=== PATIENT | female | born 1990 | race Caucasian/White ===

== ENCOUNTER 2017-08-04 18:18 | Inpatient (IN) | payer OTHER ==
[~2017-08-04] VITALS: Ht 161.3 cm; Wt 68.6 kg
[2017-08-04] VITALS (13 sets, daily range): BP systolic 124–144; BP diastolic 58–81
[~2017-08-04 18:18] MED LIST: MEDROXYPRO150 MG/1 M IM; NAPROSYN500 MG PO; NOHOMEMEDS; ZOFRAN ODT8 MG PO
[2017-08-04] MEDS ORDERED: PRENATAL TABLE1 EAC3 PO (18:57)
[2017-08-04 21:45] LABS: BASOPHIL (%) 0.4 % (0-1); BASOPHIL COUNT 0.1 K/uL (0-0.1); EOSINOPHIL (%) 0.8 % (0-5); EOSINOPHIL COUNT 0.1 K/uL (0-0.3); HEMATOCRIT 32.1 % (36.0-46.0); HEMOGLOBIN 10.6 G/DL (11.9-15.5); IMMATURE GRANULOCYTE (%) 0.5 % (0.0-0.7); LYMPHOCYTE (%) 22.7 % (15-42); LYMPHOCYTE COUNT 2.6 K/uL (1.0-2.8); MCH 30.6 PG (29.0-34.0); MCV 92.8 FL (83-99); NEUTROPHIL (%) 66.6 % (45-76); NEUTROPHIL COUNT 7.6 K/uL (1.8-6.4); PLATELET COUNT 237 K/uL (156-360); RBC DIS.WIDTH-CV 12.7 % (11.8-14.6); RBC DIS.WIDTH-SD 42.8 % (39-53); RED BLOOD COUNT 3.46 M/uL (3.80-5.20); WHITE BLOOD COUNT 11.4 K/uL (4.1-10.2)
[2017-08-05] VITALS (15 sets, daily range): BP systolic 88–130; BP diastolic 51–82
[2017-08-06 07:20] LABS: BASOPHIL (%) 0.4 % (0-1); BASOPHIL COUNT 0.1 K/uL (0-0.1); EOSINOPHIL COUNT 0.1 K/uL (0-0.3); HEMATOCRIT 28.2 % (36.0-46.0); HEMOGLOBIN 9.1 G/DL (11.9-15.5); IMMATURE GRANULOCYTE (%) 0.5 % (0.0-0.7); LYMPHOCYTE (%) 27.5 % (15-42); LYMPHOCYTE COUNT 3.8 K/uL (1.0-2.8); MCH 30.2 PG (29.0-34.0); MCHC 32.3 G/DL (30.0-36.0); MCV 93.7 FL (83-99); MONOCYTE (%) 6.3 % (3-12); MONOCYTE COUNT 0.9 K/uL (0-0.8); NEUTROPHIL (%) 64.3 % (45-76); NEUTROPHIL COUNT 8.8 K/uL (1.8-6.4); PLATELET COUNT 202 K/uL (156-360); RBC DIS.WIDTH-CV 12.5 % (11.8-14.6); RBC DIS.WIDTH-SD 42.5 % (39-53); RED BLOOD COUNT 3.01 M/uL (3.80-5.20); WHITE BLOOD COUNT 13.7 K/uL (4.1-10.2)
[2017-08-06] MEDS ORDERED: FERRETTS325 MG PO (12:30)
[2017-08-06] MEDS ORDERED: IBUPROFEN800 MG PO (12:30)
== END 2017-08-06 14:33 | disposition home or self-care (01) | DRG 775 ==
LOC: LDRP-OP → 2WEST 18:19 → LDRP-OP 09-05 13:22
PROVIDERS: Advanced Practice Midwife
PROC: 3E0R3BZ Introduction of Anesthetic Agent into Spinal Canal, Percutaneous Approach (ICD-10-PCS; principal; 2017-08-05)
PROC: 10907ZC Drainage of Amniotic Fluid, Therapeutic from Products of Conception, Via Natural or Artificial Opening (ICD-10-PCS; principal; 2017-08-05)
PROC: 00HU33Z Insertion of Infusion Device into Spinal Canal, Percutaneous Approach (ICD-10-PCS; principal; 2017-08-05)
PROC: 0HQ9XZZ Repair Perineum Skin, External Approach (ICD-10-PCS; principal; 2017-08-05)
PROC: 10E0XZZ Delivery of Products of Conception, External Approach (ICD-10-PCS; principal; 2017-08-05)
DX: O66.0 Obstructed labor due to shoulder dystocia (principal); O99.02 Anemia complicating childbirth; D62 Acute posthemorrhagic anemia; Z3A.39 39 weeks gestation of pregnancy; Z37.0 Single live birth; Z87.891 Personal history of nicotine dependence; O77.0 Labor and delivery complicated by meconium in amniotic fluid
CPT/HCPCS: 85025; 90686; C1755; G0378; J2405; J3010; J7120

== ENCOUNTER 2017-10-30 12:17 | Emergency (ER) | payer OTHER ==
[~2017-10-30] VITALS: Ht 160 cm; Wt 58.4 kg
[~2017-10-30 12:17] MED LIST changes: +FERRETTS325 MG PO; +IBUPROFEN800 MG PO; +PRENATAL TABLE1 EAC3 PO
[2017-10-30 12:32] VITALS: BP 128/65
[2017-10-30 12:47] LABS: HEMATOCRIT 41.6 % (36.0-46.0); HEMOGLOBIN 13.9 G/DL (11.9-15.5); MCHC 33.4 G/DL (30.0-36.0); MCV 89.8 FL (83-99); PLATELET COUNT 333 K/uL (156-360); RBC DIS.WIDTH-CV 13.1 % (11.8-14.6); RBC DIS.WIDTH-SD 42.9 % (39-53); RED BLOOD COUNT 4.63 M/uL (3.80-5.20); WHITE BLOOD COUNT 7.7 K/uL (4.1-10.2)
[2017-10-30 13:03] LABS: ALBUMIN 4.3 g/dL (3.2-4.8); CHLORIDE 107 mEq/L (99-109); POTASSIUM 4.2 mEq/L (3.7-5.4); SODIUM 142 mEq/L (136-147)
[2017-10-30 13:05] LABS: GLUCOSE 101 mg/dL (70-99)
[2017-10-30 13:06] LABS: TOTAL PROTEIN 7.5 g/dL (6.4-8.3)
[2017-10-30 13:07] LABS: TOTAL BILIRUBIN 0.8 mg/dL (0.0-1.0)
[2017-10-30 13:09] LABS: ALKALINE PHOSPHATASE 69 IU/L (3-129); CREATININE 0.9 mg/dL (0.6-1.3); GFR ESTIMATE (CALCULATED) > 59 mL/min/
[2017-10-30 13:10] LABS: UREA NITROGEN (BUN) 16 mg/dL (9-23)
[2017-10-30 13:11] LABS: AST (GOT) 36 IU/L (2-34)
[2017-10-30 13:12] LABS: ALT (GPT) 61 IU/L (3-49); LIPASE 49 U/L (1.0-51.0)
[2017-10-30 13:18] LABS: QUANTITATIVE HCG < 4.0 MIU/ML
== END 2017-10-30 12:57 | disposition left against medical advice (07) ==
LOC: EME 12:17
DX: R10.13 Epigastric pain (principal); Z53.21 Procedure and treatment not carried out due to patient leaving prior to being seen by health care provider
CPT/HCPCS: 80053; 81003; 83690; 84702; 85027; 93005